=== PATIENT | male | born 1965 | race Caucasian/White ===

== ENCOUNTER → 2022-06-15 | Outpatient (CLI) | payer OTHER ==
[~2022-06-15] MED LIST: ASPIRIN325 MG PO; CETIRIZINE HCL10 MG PO; FLEXERIL 10 MG10 MG PO; IBU800 MG PO; IBUPROFEN800 MG PO; KEFLEX CAP 500500 MG PO; LIPITOR40 MG PO; NORCO 7.5-3251 EACH PO; NORVASC10 MG PO; VITAMIN C500 M1 PO
== END ==
LOC: KOH-I 14:49
DX: F17.210 Nicotine dependence, cigarettes, uncomplicated (principal); R91.1 Solitary pulmonary nodule; I25.10 Atherosclerotic heart disease of native coronary artery without angina pectoris
CPT/HCPCS: 71271

== ENCOUNTER → 2022-07-23 | Outpatient (CLI) | payer OTHER | LOC: KOH-I 13:34 | DX: M79.671 Pain in right foot (principal); M20.11 Hallux valgus (acquired), right foot | CPT/HCPCS: 73630 ==